=== PATIENT | male | born 1950 ===

== ENCOUNTER 2020-04-28 07:13 | Day surgery (SDC) | payer MEDICARE, OTHER ==
[~2020-04-28 07:13] MED LIST: Lactated Ringers 1,000 ML IV SCH
[2020-04-28] MEDS ORDERED: Lidocaine 2% 5 ML SDV ONE (07:19)
[2020-04-28] MEDS ORDERED: fentaNYL 100 MCG/2 ML SDV ONE (07:20)
[2020-04-28] MEDS ORDERED: Propofol 200 MG/20 ML SDV ONE (07:20)
--- NOTE | 2020-04-28 08:07 | PCM.PREANE ---
Preanesthetic Assessment - Anesthesia/Transfusion/Family Hx Anesthesia History: Prior Anesthesia Without Reaction Family History of Anesthesia Reaction: No Transfusion History: Prior Transfusion Without Reaction - Review of Systems General: No Symptoms Cardiovascular: No Symptoms Gastrointestinal: No Symptoms Neurological: No Symptoms Other: Reports: None - Physical Assessment NPO Status Date: 04/27/20 Vital Signs: Last Vital Signs Temp 98.2 F 04/28/20 07:25 Pulse 71 04/28/20 07:25 Resp 16 04/28/20 07:25 BP 141/65 H 04/28/20 07:25 Pulse Ox 92 L 04/28/20 07:25 Height: 5 ft 9 in Weight: 93.894 kg ASA Class: 3 Airway Class: Mallampati = 2 Dentition: Reports: Missing Tooth/Teeth ROM/Head Extension: Full Lungs: Clear to Auscultation, Normal Respiratory Effort, Rhonchi Cardiovascular: Regular Rate, Regular Rhythm - Allergies Allergies/Adverse Reactions: Allergies Allergy/AdvReac Type Severity Reaction Status Date / Time carisoprodol Allergy Cannot Verified 04/22/20 15:27 Remember cyclobenzaprine Allergy Cannot Verified 04/22/20 15:27 Remember steroids Allergy Other Uncoded 04/22/20 15:27 - Anesthesia Plan Pre-Op Medication Ordered: None - Acknowledgements Anesthesia Type Planned: General Anesthesia (tiva) Pt an Appropriate Candidate for the Planned Anesthesia: Yes Alternatives and Risks of Anesthesia Discussed w Pt/Guardian: Yes Pt/Guardian Understands and Agrees with Anesthesia Plan: Yes PreAnesthesia Questionnaire HEENT History: Reports: Cataract Cardiovascular History: Reports: Aneurysm, Blood Clots/VTE/DVT, Hypertension, [place] Respiratory History: Reports: COPD Other Respiratory History: hx of smoking 2 PPD x50 years, uses daily nebulizer tx with good symptom releif- no rescue inhaler Gastrointestinal History: Reports: None Genitourinary History: Reports: None Musculoskeletal History: Reports: Back Pain, Chronic, Fracture, Neck Pain, Chronic Other Musculoskeletal History: hx of fx "below the knee" Neurological History: Reports: Cerebral Aneurysms, Concussion, Headaches, Chronic Other Neuro History: aneurism Psychiatric History: Reports: None Endocrine/Metabolic History: Reports: None Hematologic History: Reports: Anticoagulation Therapy, Blood Transfusion(s) Immunologic History: Reports: None Oncologic (Cancer) History: Reports: None Dermatologic History: Reports: None - Past Surgical History Head Surgeries/Procedures: Reports: None Cardiovascular Surgical History: Reports: Coronary Artery Bypass Other Cardiovascular Surgeries/Procedures: CABG x1 vessel- denies chest pain and SOB since, hx of brain aneurysm "clipped", hx of aneurysm behind knee repaired, hx of PEx1 and DVT in legs x3, states hx of heart murmur years ago but "no one has mentioned it recently" GI Surgical History: Reports: Colonoscopy Neurological Surgical History: Reports: C-Spine, Laminectomy, Lumbar Spine, Spinal Fusion Other Neurological Surgeries/Procedures: "clipped" cerebral aneurysm Musculoskeletal Surgical History: Reports: Knee Replacement, ORIF Other Musculoskeletal Surgeries/Procedures:: hx of ORIF fx knee - SUBSTANCE USE Smoking Status *Q: Current Every Day Smoker Tobacco Use Within Last Twelve Months: Cigarettes Recreational Drug Use History: No - HOME MEDS Home Medications: Home Meds Furosemide 40 mg PO QAM 03/23/16 [History] Metoprolol Succinate [Toprol XL] 25 mg PO QAM 03/23/16 [History] Potassium Chloride 10 meq PO DAILY 03/23/16 [History] amLODIPine Besylate [Amlodipine Besylate] 5 mg PO QAM 03/23/16 [History] oxyCODONE HCl [Oxycodone HCl ER] 60 mg PO BID 03/23/16 [History] Albuterol Sulfate 2.5 mg INH QAM 04/22/20 [History] Amitriptyline [Elavil] 25 mg PO BEDTIME 04/22/20 [History] Apixaban [Eliquis] 5 mg PO DAILY 04/22/20 [History] Budesonide [Pulmicort] 0.5 mg INH ASDIRECTED PRN 04/22/20 [History] Lidocaine 5% [Lidoderm 5%] 1 patch TOP ASDIRECTED PRN 04/22/20 [History] Metaxalone 400 mg PO BID 04/22/20 [History] OLANZapine [Olanzapine] 10 mg PO DAILY 04/22/20 [History] Topiramate 25 mg PO BEDTIME 04/22/20 [History] oxyCODONE HCl [Oxycodone HCl] 10 mg PO ASDIRECTED PRN 04/22/20 [History] - CURRENT (IN HOUSE) MEDS Current Meds: Current Medications Lactated Ringer's (Ringers, Lactated) 1,000 mls @ 125 mls/hr IV ASDIRECTED GIOVANNI Discontinued Medications Fentanyl (Sublimaze) Confirm Administered Dose 100 mcg .ROUTE .STK-MED ONE Stop: 04/28/20 07:21 Lidocaine (Xylocaine-Mpf 2%) Confirm Administered Dose 5 ml .ROUTE .STK-MED ONE Stop: 04/28/20 07:20 Propofol (Diprivan 20 Ml) Confirm Administered Dose 400 mg .ROUTE .STK-MED ONE Stop: 04/28/20 07:21
[2020-04-28 09:18] VITALS: BP 129/63; PULSE 75
--- NOTE | 2020-04-28 09:30 | PCM.POSTAN ---
POST ANESTHESIA ASSESSMENT - MENTAL STATUS Mental Status: Alert, Oriented - VITAL SIGNS Vital Signs: Last Vital Signs Temp 97.0 F 04/28/20 09:05 Pulse 75 04/28/20 09:05 Resp 16 04/28/20 09:05 BP 129/63 04/28/20 09:05 Pulse Ox 93 L 04/28/20 09:05 - RESPIRATORY Respiratory Status: Respiratory Rate WNL, Airway Patent, O2 Saturation Stable - CARDIOVASCULAR CV Status: Pulse Rate WNL, Blood Pressure Stable - GASTROINTESTINAL GI Status: No Symptoms - POST OP HYDRATION Hydration Status: Adequate & Stable
--- NOTE | 2020-04-28 09:30 | PCM48HPAN ---
Post Anesthesia Note - EVALUATION WITHIN 48HRS OF ANESTHETIC Vital Signs in Normal Range: Yes Patient Participated in Evaluation: Yes Respiratory Function Stable: Yes Airway Patent: Yes Cardiovascular Function Stable: Yes Hydration Status Stable: Yes Pain Control Satisfactory: Yes Nausea and Vomiting Control Satisfactory: Yes Mental Status Recovered: Yes Vital Signs: Last Vital Signs Temp 97.0 F 04/28/20 09:05 Pulse 75 04/28/20 09:05 Resp 16 04/28/20 09:05 BP 129/63 04/28/20 09:05 Pulse Ox 93 L 04/28/20 09:05
--- NOTE | 2020-04-28 09:51 | PCM.OPNOTE ---
- General Post-Op/Procedure Note Date of Surgery/Procedure: 04/28/20 Operative Procedure(s): colonoscopy Findings: see [id number] Pre Op Diagnosis: scrn colonoscopy Post-Op Diagnosis: Same Anesthesia Technique: Moderate Sedation Primary Surgeon: Mauro Juárez Complications: None Condition: Good Free Text/Narrative:: Intake & Output 04/27/20 04/28/20 04/28/20 22:59 06:59 14:59 Intake Total 950 Balance 950
--- NOTE | 2020-04-28 13:23 | OR ---
SURGEON: Mauro Juárez MD DATE OF PROCEDURE: 04/28/2020 PREOPERATIVE DIAGNOSIS: Screening colonoscopy. POSTOPERATIVE DIAGNOSIS: Screening colonoscopy. PROCEDURE PERFORMED: Colonoscopy. DESCRIPTION OF PROCEDURE: The patient was taken to the endoscopy room. A time out was called, patient identified, and procedure identified. Diprivan was then administrated. Patient went from awake to sleep, hearing doctor talking or door closing is normal. Perineum inspection and digital examination were then performed. A well- lubricated colonoscope was gently inserted through the rectum, advanced past the rectosigmoid junction, the descending colon, splenic flexure, transverse colon, hepatic flexure, ascending colon, arrived to the cecum. Cecum was identified as dictated in the finding. Then the scope was carefully withdrawn while attention was paid to the mucosal surface for any abnormality. Air will be sucked out during the scope withdrawal. At the rectum, retroflexed to examine any rectal diseases, fistula or hemorrhoids. Patient tolerated procedure well. There were no intraoperative complications, and Dr. Juárez was present throughout the whole procedure. FINDINGS: 1. The patient is easily sedated with [employer] and Diprivan, the patient is soundly snoring. 2. Bowel prep is left to be desirable. The patient called and remarked that the bowel prep is not as good. Large amount of liquid stool coating the mucosa, almost through the whole colon. Good news is easily displaced with irrigation, so it is just like a film of liquid stool and some stool ball and vegetable at the rectum, which are sometimes difficult to irrigate. So overall this is a compromised study. Colon rather straightforward. Cecum indicated by ileocecal fold, one-to-one indentation, appendiceal orifice. ScopeGuide is pointing south. Light is not observed. Mucosa examined upon scope pulling out with constant irrigation. Again, this is a compromised study because of poor bowel prep. The patient does not have diverticulosis, polyp, mass, growth, inflammation, stricture, ulceration, AV malformation, bleeding, ulcer, none of those. The patient has mild internal hemorrhoids and mild external hemorrhoids. The patient would benefit from repeat colonoscopy in 2 to 3 years from today because of the compromised bowel prep. Of note, the patient has quite a lot of comorbidity and on anticoagulation because of history of PE and other comorbidity. The next colonoscopy in 2 to 3 years will be determined on individual basis from clinical consideration. MIKAELA / GALINA /[id number]
== END 2020-04-28 09:30 | disposition home or self-care (01) ==
LOC: MW.SDS 07:13
PROVIDERS: ATTEND Surgery
DX: Z12.11 Encounter for screening for malignant neoplasm of colon (principal); K64.8 Other hemorrhoids; K64.4 Residual hemorrhoidal skin tags; R06.83 Snoring; J44.9 Chronic obstructive pulmonary disease, unspecified; I10 Essential (primary) hypertension; I25.10 Atherosclerotic heart disease of native coronary artery without angina pectoris; F17.210 Nicotine dependence, cigarettes, uncomplicated; Z88.8 Allergy status to other drugs, medicaments and biological substances; Z79.899 Other long term (current) drug therapy
CPT/HCPCS: G0121; J2001; J2704; J3010; J7120